=== PATIENT | male | born 1980 | race Caucasian/White ===

== ENCOUNTER → 2017-07-12 | Outpatient (CLI) | payer OTHER ==
[~2017-07-12] MED LIST: BACTRIM DS 8001 TA1 PO; CEFADROXIL500 M1 PO; GLUCOPHAGE500 M1 PO; HYDROCODONE BIT1 T11 PO; LISINOPRIL/HCTZ1 TA4 PO; MULTIVITAMIN1 CTB PO; PRILOSEC20 MG PO
== END | disposition home or self-care (01) ==
LOC: US 07:04
DX: K76.0 Fatty (change of) liver, not elsewhere classified (principal); I10 Essential (primary) hypertension; E11.9 Type 2 diabetes mellitus without complications

== ENCOUNTER → 2025-02-26 | Day surgery (SDC) | payer BC ==
[~2025-02-26] VITALS: Ht 170.1 cm; Wt 95.3 kg
[~2025-02-26] MED LIST changes: +Lidocaine Hydrochloride 5 ML VIAL IV ONE; +PROPOFOL 200 MG/20 ML VIAL IV ONE; +SODIUM CHLORIDE 0.9% 1,000 ML IV ONE; +SODIUM CHLORIDE 0.9% 1,000 ML IV SCH
[2025-02-26 07:43] VITALS: BP 123/77
[2025-02-26 08:27] VITALS: BP 90/53
[2025-02-26 08:42] VITALS: BP 103/58
[2025-02-26 08:55] VITALS: BP 107/62
== END | disposition home or self-care (01) ==
LOC: SDC 02-23 09:30
PROVIDERS: ATTEND Surgery
DX: Z12.11 Encounter for screening for malignant neoplasm of colon (principal); K64.9 Unspecified hemorrhoids; E11.9 Type 2 diabetes mellitus without complications; E78.00 Pure hypercholesterolemia, unspecified; I10 Essential (primary) hypertension; Z80.1 Family history of malignant neoplasm of trachea, bronchus and lung; Z79.84 Long term (current) use of oral hypoglycemic drugs; Z79.899 Other long term (current) drug therapy